=== PATIENT | female | born 1945 | race Asian ===

== ENCOUNTER 2018-12-21 10:00 | Emergency (ER) | payer MEDICARE, MEDICAID ==
[~2018-12-21] VITALS: Ht 144.8 cm; Wt 46.5 kg
[2018-12-21 12:39] LABS: BASOPHILS # (AUTO) 0.1 X10'3 (0-0.2); BASOPHILS % (AUTO) 0.9 % (0-1); EOSINOPHILS # (AUTO) 0.2 X10'3 (0-0.9); EOSINOPHILS % (AUTO) 3.7 % (0-6); HEMATOCRIT 38.3 % (35.0-45.0); HEMOGLOBIN 12.5 g/dl (12.0-16.0); LYMPHOCYTES # (AUTO) 1.6 X10'3 (1.1-4.8); LYMPHOCYTES % (AUTO) 25.9 % (21-51); MEAN CORPUSCULAR HEMOGLOBIN 27.8 PG (27.0-31.0); MEAN CORPUSCULAR HGB CONC 32.7 g/dL (33.0-36.5); MEAN CORPUSCULAR VOLUME 85.2 FL (78-98); MEAN PLATELET VOLUME 6.9 FL (7.4-10.4); MONOCYTES # (AUTO) 0.5 X10'3 (0-0.9); MONOCYTES % (AUTO) 7.4 % (2-12); NEUTROPHILS # (AUTO) 3.9 X10'3 (1.8-7.7); NEUTROPHILS % (AUTO) 62.1 % (42-75); PLATELET COUNT 226 X10'3 (140-440); RED BLOOD COUNT 4.49 X10'6 (4.20-5.60); RED CELL DISTRIBUTION WIDTH 17.5 % (11.5-14.5); WHITE BLOOD COUNT 6.2 X10'3 (4.5-11.0)
[2018-12-21 12:57] LABS: ALANINE AMINOTRANSFERASE 15 U/L (12-78); ALBUMIN/GLOBULIN RATIO 0.9 (1.1-1.5); ALKALINE PHOSPHATASE 67 IU/L (46-116); ANION GAP 12 (8-16); ASPARTATE AMINO TRANSFERASE 14 U/L (10-37); BILIRUBIN,TOTAL 0.5 MG/DL (0.1-1.0); BLOOD UREA NITROGEN 54 MG/DL (7-18); BUN/CREATININE RATIO 11.7 (6.6-38.0); CALCIUM 9.5 MG/DL (8.5-10.1); CHLORIDE 106 MMOL/L (99-107); CREATININE 4.61 MG/DL (0.40-0.90); GLUCOSE 130 MG/DL (70-104); MAGNESIUM 2.3 MG/DL (1.5-2.4); POTASSIUM 3.6 MMOL/L (3.5-5.1); SODIUM 147 MMOL/L (135-145); TOTAL CARBON DIOXIDE 28.7 MMOL/L (24-32); TOTAL PROTEIN 8.6 G/DL (6.4-8.2); eGFR 9 ML/MIN
--- NOTE | 2018-12-21 13:49 | NUR ---
Asked by social service assistant to assist this pt in getting set up w/ some dialysis while up here visiting. I first spoke w/ Kaya at [facility]; she tells me they have NO chair openings for the forsee future. I next called [facility] and spoke w/ Yulia; she was familiar w/ the name and was kind of surprised that pt had presented here. She says they had rec'd the referral for visiting dialysis but were unable to set her up as there was multiple documentation needed and there was not enough time to between the request and the requested date of service to accomodate her. Yulia asked I call their corporate at [phone] and spoke w/ Haven. She was able to locate the pt and found she had been referred to [facility] the by a person named Chi and at that time he was told they could not set up dialysis at this time. All this passed on to Aidee from social service assistant who is going to speak w/ the family. Continue to monitor.
--- NOTE | 2018-12-21 15:02 | NUR ---
Called Dr. Tinsley who informs me that he is willing to follow the pt for out-pt dialysis services while she is here locally visiting her daughter. After being told that [facility] had no availiabilty, he suggested I call [facility] to see if they can help us out. Called [facility] and spoke w/ Clarisse ([phone]) and explained the issue to her. She asked that I contact pt's regular dialysis center ([facility] and have them fax insurance documentation, chart notes to her at [phone]. They will need a Hep B surface antigen and antibody along w/ a CXR cleared for TB. All these tests need to be within the last 2 weeks. Called [facility] on [address] . They tell me I need to speak w/ Isidra who is out to lunch. Asked that I call back in 30 minutes. Will continue to monitor.
--- NOTE | 2018-12-21 15:38 | NUR ---
After about 20 phone calls I finally reached the correct dialysis center at and spoke w/ Martin. Explained the situation to her and she actually knew exactly what [facility] needed. She will fax everything to Tosha at [facility] [phone] including her existing orders. Continue to monitor.
--- NOTE | 2018-12-21 15:57 | NUR ---
Spoke w/ Tosha at [facility], informed her of incoming fax. We will speak first thing monday AM to set up pt's start of care w/ [facility]. Dr. Gould made aware of my progress, he tells me that Dr. Tinsley feels pt can will not require dialysis over the weekend and can go home. After speaking w/ GUILLE on monday I will contact family to inform them of first appt. Continue to monitor.
[2018-12-21 16:02] VITALS: BP 174/88
== END 2018-12-21 15:59 | disposition home or self-care (01) ==
LOC: ER 10:01
DX: I12.9 Hypertensive chronic kidney disease with stage 1 through stage 4 chronic kidney disease, or unspecified chronic kidney disease (principal); N18.9 Chronic kidney disease, unspecified; E78.00 Pure hypercholesterolemia, unspecified; E03.9 Hypothyroidism, unspecified; Z86.73 Personal history of transient ischemic attack (TIA), and cerebral infarction without residual deficits; Z79.899 Other long term (current) drug therapy; Z99.2 Dependence on renal dialysis
CPT/HCPCS: 36415; 71045; 80053; 83735; 85025; 93005; 99284

== ENCOUNTER 2018-12-24 11:24 | Inpatient (IN) | payer MEDICARE, MEDICAID ==
[~2018-12-24] VITALS: Ht 144.8 cm; Wt 44.5 kg
--- NOTE | 2018-12-24 12:42 | NUR ---
pt in to be admited for HD last HD 6 days ago on 12/18
[2018-12-24 12:54] LABS: BASOPHILS # (AUTO) 0.1 X10'3 (0-0.2); BASOPHILS % (AUTO) 1.1 % (0-1); EOSINOPHILS # (AUTO) 0.2 X10'3 (0-0.9); HEMATOCRIT 35.1 % (35.0-45.0); HEMOGLOBIN 11.5 g/dl (12.0-16.0); LYMPHOCYTES # (AUTO) 1.3 X10'3 (1.1-4.8); LYMPHOCYTES % (AUTO) 23.9 % (21-51); MEAN CORPUSCULAR HEMOGLOBIN 28.1 PG (27.0-31.0); MEAN CORPUSCULAR HGB CONC 32.8 g/dL (33.0-36.5); MEAN CORPUSCULAR VOLUME 85.7 FL (78-98); MEAN PLATELET VOLUME 6.5 FL (7.4-10.4); MONOCYTES # (AUTO) 0.4 X10'3 (0-0.9); MONOCYTES % (AUTO) 8.1 % (2-12); NEUTROPHILS # (AUTO) 3.6 X10'3 (1.8-7.7); NEUTROPHILS % (AUTO) 63.9 % (42-75); PLATELET COUNT 206 X10'3 (140-440); WHITE BLOOD COUNT 5.6 X10'3 (4.5-11.0)
[2018-12-24] MEDS ORDERED: CLOP75TA35 PO (12:56)
[2018-12-24] MEDS ORDERED: HYDR-4070 PO (12:56)
[2018-12-24] MEDS ORDERED: LEVE500T PO (12:56)
[2018-12-24] MEDS ORDERED: SYN0.088T PO (12:56)
[2018-12-24] MEDS ORDERED: AMLO5TAB PO (12:56)
[2018-12-24] MEDS ORDERED: SEVE800T7 PO (12:56)
[2018-12-24] MEDS ORDERED: imdur PO (13:01)
[2018-12-24] MEDS ORDERED: levothyroxine sodium PO (13:01)
[2018-12-24] MEDS ORDERED: LEVOT PO (13:01)
[2018-12-24 13:15] LABS: ALANINE AMINOTRANSFERASE 13 U/L (12-78); ALBUMIN 3.4 G/DL (3.4-5.0); ALBUMIN/GLOBULIN RATIO 0.7 (1.1-1.5); ALKALINE PHOSPHATASE 66 IU/L (46-116); ANION GAP 9 (8-16); ASPARTATE AMINO TRANSFERASE 13 U/L (10-37); BILIRUBIN,TOTAL 0.3 MG/DL (0.1-1.0); BLOOD UREA NITROGEN 57 MG/DL (7-18); BUN/CREATININE RATIO 15.8 (6.6-38.0); CALCIUM 9.1 MG/DL (8.5-10.1); CHLORIDE 108 MMOL/L (99-107); CREATININE 3.61 MG/DL (0.40-0.90); GLUCOSE 237 MG/DL (70-104); MAGNESIUM 2.2 MG/DL (1.5-2.4); PHOSPHORUS 3.1 MG/DL (2.3-4.5); POTASSIUM 3.7 MMOL/L (3.5-5.1); SODIUM 147 MMOL/L (135-145); TOTAL CARBON DIOXIDE 29.6 MMOL/L (24-32); eGFR 12 ML/MIN
[2018-12-24] MEDS ORDERED: bisacodyl 10mg suppository rectal RC PRN (13:25)
[2018-12-24] MEDS ORDERED: acetaminophen 325mg tablet PO PRN (13:25)
[2018-12-24] MEDS ORDERED: ondansetron/PF 4mg/2ml inj IV PRN (13:25)
[2018-12-24] MEDS ORDERED: normal saline 1000ml 250 ML IV PRN (13:37)
[2018-12-24] MEDS ORDERED: heparin 1,000unit/ml 10ml vial 10 ML IV ONE (13:37)
[2018-12-24] MEDS ORDERED: epoetin 20,000 units/ml inj IV ONE (13:40)
[2018-12-24] MEDS ORDERED: heparin 1,000 units/ml 10ml inj HE ONE ×2 (13:45)
[2018-12-24] MEDS ORDERED: ATOR40TA71 PO (13:54)
[2018-12-24] MEDS ORDERED: LEVO75TA7 PO (13:56)
[2018-12-24] MEDS ORDERED: CARV6.253 PO (13:58)
[2018-12-24] MEDS ORDERED: IMDUR 30 MG PO (14:04)
[2018-12-24] MEDS ORDERED: IMDUR (14:04)
--- NOTE | 2018-12-24 14:55 | NUR ---
Patient in room ED 3. I have received report from Facundo CONTE in ER and had the opportunity to ask questions will assume patient care when patient comes to the floor.
[2018-12-24 15:00] VITALS: BP 194/72
--- NOTE | 2018-12-24 15:58 | NUR ---
Called Dr Tinsley regarding patients vitals as follows. BP 194/[address] Tinsley has addressed home medications but would like to start them in the morning. Dr Tinsley also informed that patient dialysis will happen around 2100 tonight. Received diet orders for a Renal diet
[2018-12-24] MEDS: sevelamer carbonate 800mg tablet PO SCH (18:15)
--- NOTE | 2018-12-24 18:26 | NUR ---
Called Charbel wang RN and advised of patients allergy. Placed allergy band on patient.
--- NOTE | 2018-12-24 18:27 | NUR ---
Problems reprioritized. Patient report given, questions answered & plan of care reviewed with Jennifer Rodriguez RN.
--- NOTE | 2018-12-24 18:30 | NUR ---
Patient in room [facility] 356. I have received report from MARKOS CONTE and had the opportunity to ask questions and assume patient care.
[2018-12-24 20:00] VITALS: BP 190/81
[2018-12-24] MEDS: levetiracetam 250mg tablet PO SCH (20:55)
[2018-12-25] VITALS: BP 154/83
[2018-12-25 05:57] LABS: BASOPHILS # (AUTO) 0.1 X10'3 (0-0.2); BASOPHILS % (AUTO) 0.9 % (0-1); EOSINOPHILS # (AUTO) 0.2 X10'3 (0-0.9); EOSINOPHILS % (AUTO) 2.2 % (0-6); HEMATOCRIT 37.8 % (35.0-45.0); HEMOGLOBIN 12.6 g/dl (12.0-16.0); LYMPHOCYTES # (AUTO) 1.7 X10'3 (1.1-4.8); LYMPHOCYTES % (AUTO) 22.2 % (21-51); MEAN CORPUSCULAR HGB CONC 33.3 g/dL (33.0-36.5); MONOCYTES # (AUTO) 0.6 X10'3 (0-0.9); MONOCYTES % (AUTO) 7.2 % (2-12); NEUTROPHILS # (AUTO) 5.2 X10'3 (1.8-7.7); NEUTROPHILS % (AUTO) 67.5 % (42-75); PLATELET COUNT 210 X10'3 (140-440); RED BLOOD COUNT 4.49 X10'6 (4.20-5.60); RED CELL DISTRIBUTION WIDTH 17.2 % (11.5-14.5); WHITE BLOOD COUNT 7.6 X10'3 (4.5-11.0)
[2018-12-25 06:00] LABS: ALANINE AMINOTRANSFERASE 13 U/L (12-78); ALBUMIN 3.7 G/DL (3.4-5.0); ALBUMIN/GLOBULIN RATIO 0.7 (1.1-1.5); ALKALINE PHOSPHATASE 62 IU/L (46-116); ANION GAP 11 (8-16); ASPARTATE AMINO TRANSFERASE 14 U/L (10-37); BILIRUBIN,TOTAL 0.7 MG/DL (0.1-1.0); BLOOD UREA NITROGEN 16 MG/DL (7-18); BUN/CREATININE RATIO 7.9 (6.6-38.0); CHLORIDE 102 MMOL/L (99-107); CREATININE 2.03 MG/DL (0.40-0.90); GLUCOSE 131 MG/DL (70-104); POTASSIUM 3.4 MMOL/L (3.5-5.1); SODIUM 140 MMOL/L (135-145); TOTAL CARBON DIOXIDE 26.7 MMOL/L (24-32); TOTAL PROTEIN 8.7 G/DL (6.4-8.2); eGFR 24 ML/MIN
--- NOTE | 2018-12-25 06:32 | NUR ---
Problems reprioritized. Patient report given, questions answered & plan of care reviewed with MARKOS CONTE.
[2018-12-25 06:37] LABS: HEMOGLOBIN A1C 6.6 % (4.5-6.2)
[2018-12-25 07:00] VITALS: BP 167/79
[2018-12-25] MEDS ORDERED: hydrALAZINE 25 MG tablet PO SCH (08:00)
[2018-12-25] MEDS: sevelamer carbonate 800mg tablet PO SCH ×4 (08:00→17:51)
[2018-12-25] MEDS: clopidogrel 75mg tablet PO SCH (08:01)
[2018-12-25] MEDS: levetiracetam 250mg tablet PO SCH ×2 (08:01→19:26)
[2018-12-25] MEDS: atorvastatin 20mg tablet PO SCH (08:02)
[2018-12-25] MEDS: carvedilol 6.25mg tablet PO SCH ×2 (08:02→19:27)
[2018-12-25] MEDS: amLODIPine 5mg tablet PO SCH (08:02)
[2018-12-25] MEDS: levoTHYROXINE 75mcg tablet PO SCH (08:03)
[2018-12-25] MEDS: isosorbide mononitrate 30mg tab.SR.24H PO SCH (08:03)
[2018-12-25 11:12] VITALS: BP 89/43
[2018-12-25 16:20] VITALS: BP 102/56
--- NOTE | 2018-12-25 16:20 | NUR ---
Dr Ocampo making rounds aware patient has not voided today. Bladder scan shows 70ml's in bladder. no new orders.
--- NOTE | 2018-12-25 18:47 | NUR ---
Problems reprioritized. Patient report given, questions answered & plan of care reviewed with Martha CONTE.
--- NOTE | 2018-12-25 18:59 | NUR ---
Patient in room [facility]LO[facility] 356. I have received report from Vivian CONTE and had the opportunity to ask questions and assume patient care.
[2018-12-25 20:00] VITALS: BP 103/56
[2018-12-26 00:34] VITALS: BP 106/64
[2018-12-26 05:54] LABS: BASOPHILS # (AUTO) 0.1 X10'3 (0-0.2); EOSINOPHILS # (AUTO) 0.2 X10'3 (0-0.9); EOSINOPHILS % (AUTO) 3.9 % (0-6); HEMATOCRIT 36.2 % (35.0-45.0); HEMOGLOBIN 11.9 g/dl (12.0-16.0); LYMPHOCYTES # (AUTO) 2.6 X10'3 (1.1-4.8); MEAN CORPUSCULAR HGB CONC 32.8 g/dL (33.0-36.5); MEAN CORPUSCULAR VOLUME 85.5 FL (78-98); MEAN PLATELET VOLUME 7.3 FL (7.4-10.4); MONOCYTES # (AUTO) 0.6 X10'3 (0-0.9); MONOCYTES % (AUTO) 9.2 % (2-12); NEUTROPHILS # (AUTO) 2.8 X10'3 (1.8-7.7); NEUTROPHILS % (AUTO) 44.9 % (42-75); PLATELET COUNT 213 X10'3 (140-440); RED BLOOD COUNT 4.24 X10'6 (4.20-5.60); RED CELL DISTRIBUTION WIDTH 16.7 % (11.5-14.5); WHITE BLOOD COUNT 6.3 X10'3 (4.5-11.0)
[2018-12-26 06:28] LABS: ALANINE AMINOTRANSFERASE 7 U/L (12-78); ALBUMIN 3.5 G/DL (3.4-5.0); ALBUMIN/GLOBULIN RATIO 0.8 (1.1-1.5); ALKALINE PHOSPHATASE 58 IU/L (46-116); ANION GAP 11 (8-16); ASPARTATE AMINO TRANSFERASE 14 U/L (10-37); BILIRUBIN,TOTAL 0.5 MG/DL (0.1-1.0); BLOOD UREA NITROGEN 35 MG/DL (7-18); BUN/CREATININE RATIO 7.9 (6.6-38.0); CALCIUM 9.8 MG/DL (8.5-10.1); CHLORIDE 103 MMOL/L (99-107); CREATININE 4.45 MG/DL (0.40-0.90); GLUCOSE 117 MG/DL (70-104); SODIUM 139 MMOL/L (135-145); TOTAL CARBON DIOXIDE 25.3 MMOL/L (24-32); TOTAL PROTEIN 7.9 G/DL (6.4-8.2); eGFR 10 ML/MIN
--- NOTE | 2018-12-26 06:47 | NUR ---
Problems reprioritized. Patient report given, questions answered & plan of care reviewed with Sara CONTE and 2 [facility] [employer] [facility] nursing students.
[2018-12-26] MEDS: levoTHYROXINE 75mcg tablet PO SCH (07:12)
[2018-12-26 08:00] VITALS: BP 147/72
[2018-12-26] MEDS ORDERED: normal saline 1000ml 250 ML IV PRN (08:00)
[2018-12-26] MEDS ORDERED: heparin 1,000unit/ml 10ml vial 10 ML IV ONE (08:00)
[2018-12-26] MEDS ORDERED: heparin 1,000 units/ml 10ml inj HE ONE ×2 (08:00)
[2018-12-26] MEDS: sevelamer carbonate 800mg tablet PO SCH ×3 (08:08→17:30)
[2018-12-26] MEDS: clopidogrel 75mg tablet PO SCH (08:09)
[2018-12-26] MEDS: amLODIPine 5mg tablet PO SCH (08:09)
[2018-12-26] MEDS: levetiracetam 250mg tablet PO SCH ×2 (08:09→20:00)
[2018-12-26] MEDS: isosorbide mononitrate 30mg tab.SR.24H PO SCH (08:10)
[2018-12-26] MEDS: atorvastatin 20mg tablet PO SCH (08:10)
[2018-12-26] MEDS: carvedilol 6.25mg tablet PO SCH ×2 (08:10→20:00)
[2018-12-26 11:04] VITALS: BP 140/66
--- NOTE | 2018-12-26 12:00 | NUR ---
Patient in room [facility] 356. I have received report from Speedy lopez RN and had the opportunity to ask questions and assume patient care.
[2018-12-26 18:00] VITALS: BP 121/57
--- NOTE | 2018-12-26 18:22 | NUR ---
Patient in room ELO[facility] 356. I have received report from Sara CONTE and had the opportunity to ask questions and assume patient care.
--- NOTE | 2018-12-26 18:31 | NUR ---
Problems reprioritized. Patient report given, questions answered & plan of care reviewed with DG Thomas.
[2018-12-27 00:44] VITALS: BP 140/70
[2018-12-27 05:51] LABS: BASOPHILS # (AUTO) 0.1 X10'3 (0-0.2); BASOPHILS % (AUTO) 1.2 % (0-1); EOSINOPHILS # (AUTO) 0.3 X10'3 (0-0.9); EOSINOPHILS % (AUTO) 3.4 % (0-6); HEMATOCRIT 39.2 % (35.0-45.0); HEMOGLOBIN 12.9 g/dl (12.0-16.0); LYMPHOCYTES # (AUTO) 1.9 X10'3 (1.1-4.8); LYMPHOCYTES % (AUTO) 25.7 % (21-51); MEAN CORPUSCULAR HEMOGLOBIN 27.6 PG (27.0-31.0); MEAN CORPUSCULAR HGB CONC 32.8 g/dL (33.0-36.5); MEAN CORPUSCULAR VOLUME 84.2 FL (78-98); MEAN PLATELET VOLUME 7.2 FL (7.4-10.4); MONOCYTES # (AUTO) 0.7 X10'3 (0-0.9); MONOCYTES % (AUTO) 9.8 % (2-12); NEUTROPHILS # (AUTO) 4.4 X10'3 (1.8-7.7); NEUTROPHILS % (AUTO) 59.9 % (42-75); PLATELET COUNT 220 X10'3 (140-440); RED BLOOD COUNT 4.66 X10'6 (4.20-5.60); RED CELL DISTRIBUTION WIDTH 16.5 % (11.5-14.5); WHITE BLOOD COUNT 7.3 X10'3 (4.5-11.0)
[2018-12-27 06:03] LABS: ALANINE AMINOTRANSFERASE 14 U/L (12-78); ALBUMIN 3.7 G/DL (3.4-5.0); ALBUMIN/GLOBULIN RATIO 0.8 (1.1-1.5); ALKALINE PHOSPHATASE 63 IU/L (46-116); ANION GAP 11 (8-16); ASPARTATE AMINO TRANSFERASE 17 U/L (10-37); BILIRUBIN,TOTAL 0.5 MG/DL (0.1-1.0); BLOOD UREA NITROGEN 22 MG/DL (7-18); BUN/CREATININE RATIO 7.1 (6.6-38.0); CALCIUM 9.8 MG/DL (8.5-10.1); CHLORIDE 100 MMOL/L (99-107); CREATININE 3.08 MG/DL (0.40-0.90); GLUCOSE 124 MG/DL (70-104); POTASSIUM 4.2 MMOL/L (3.5-5.1); SODIUM 136 MMOL/L (135-145); TOTAL CARBON DIOXIDE 25.4 MMOL/L (24-32); TOTAL PROTEIN 8.5 G/DL (6.4-8.2); eGFR 15 ML/MIN
--- NOTE | 2018-12-27 06:52 | NUR ---
Problems reprioritized. Patient report given, questions answered & plan of care reviewed with Priti CONTE and Beverly CONTE.
[2018-12-27] MEDS: carvedilol 6.25mg tablet PO SCH (07:06)
[2018-12-27] MEDS: clopidogrel 75mg tablet PO SCH (07:06)
[2018-12-27] MEDS: isosorbide mononitrate 30mg tab.SR.24H PO SCH (07:06)
[2018-12-27] MEDS: levetiracetam 250mg tablet PO SCH (07:06)
[2018-12-27] MEDS: levoTHYROXINE 75mcg tablet PO SCH (07:06)
[2018-12-27] MEDS: sevelamer carbonate 800mg tablet PO SCH ×2 (07:07→13:07)
[2018-12-27] MEDS: atorvastatin 20mg tablet PO SCH (07:07)
[2018-12-27] MEDS: amLODIPine 5mg tablet PO SCH (07:07)
[2018-12-27 07:10] LABS: HBSAG SCREEN Negative (Negative); HEP B CORE AB, IGM Negative (Negative); HEP B CORE AB, TOT Positive (Negative)
[2018-12-27 11:08] VITALS: BP 110/67
--- NOTE | 2018-12-27 12:13 | NUR ---
Patient in room ELOY 356B. I have received report from Speedy, Student Nurse and had the opportunity to ask questions and assume patient care.
[2018-12-27 12:30] VITALS: BP 105/65
[2018-12-27] MEDS ORDERED: VIT1TABL48 PO (12:49)
[2018-12-27] MEDS ORDERED: FOLI1TAB16 PO (12:49)
--- NOTE | 2018-12-27 15:13 | NUR ---
Patient discharged to home, [facility] set up for dialysis, IV taken out, patient stable and appropriate for discharge, patient sent home with all belongings,, taken in wheel chair to awaiting car.
--- NOTE | 2018-12-27 15:44 | NUR ---
Student documentation: I have reviewed interventions, assessments performed and documented by Elin CASTELLANOS
== END 2018-12-27 15:18 | disposition home or self-care (01) | DRG 291 ==
LOC: ER 11:25 → ED HOLD 14:24 → EDBEDREQ 14:26 → SUR 3N 15:02
PROVIDERS: ATTEND Internal Medicine Critical Care Medicine
PROC: 5A1D70Z Performance of Urinary Filtration, Intermittent, Less than 6 Hours Per Day (ICD-10-PCS; 2018-12-24)
PROC: 5A1D70Z Performance of Urinary Filtration, Intermittent, Less than 6 Hours Per Day (ICD-10-PCS; principal; 2018-12-26)
DX: I13.2 Hypertensive heart and chronic kidney disease with heart failure and with stage 5 chronic kidney disease, or end stage renal disease (principal); N18.6 End stage renal disease; E03.9 Hypothyroidism, unspecified; E11.22 Type 2 diabetes mellitus with diabetic chronic kidney disease; E78.00 Pure hypercholesterolemia, unspecified; I50.9 Heart failure, unspecified; Z79.02 Long term (current) use of antithrombotics/antiplatelets; Z99.2 Dependence on renal dialysis; Z86.73 Personal history of transient ischemic attack (TIA), and cerebral infarction without residual deficits; Z79.899 Other long term (current) drug therapy
CPT/HCPCS: 36415; 80053; 82948; 83036; 83735; 84100; 84443; 85025; 86704; 86705; 86706; 87081; 87340; 90935; 99285; G0257; G0378; J1644; J2150; J2405